=== PATIENT | female | born 1985 | race Caucasian/White ===

== ENCOUNTER 2017-11-25 21:07 | Emergency (ER) | payer OTHER ==
[~2017-11-25] VITALS: Ht 160 cm; Wt 86.2 kg
[~2017-11-25 21:07] MED LIST: AZITHROMYCIN 2250 MG PO; CHERACOL COUGH120 ML PO; CIPRO250 M1 PO; ERYTHROMYCIN250 MG PO; FLEXERIL PO; IBUPROFEN 800800 M1 PO; MEDROLDOSEPACK PO; NAPROSYN500 MG PO; PROVENTIL IN; SYNTHROID; SYNTHROID50 MCG PO; TESSALON200 MG PO; VICODIN 5-5001 EACH PO; ZOLOFT; ZOLOFT100 MG PO
[2017-11-25] MEDS ORDERED: VITAMIN D1000 UNI1 (21:19)
[2017-11-25] MEDS ORDERED: CYMBALTA30 MG PO (21:19)
[2017-11-25] MEDS ORDERED: GABAPENTIN 100100 MG PO (21:19)
[2017-11-25] MEDS ORDERED: LIPITOR10 MG (21:20)
[2017-11-25] MEDS ORDERED: LOPRESSOR25 (21:20)
[2017-11-25 23:28] VITALS: BP 124/83
== END 2017-11-25 23:28 | disposition home or self-care (01) ==
LOC: M.ERS 21:07
DX: S46.911A Strain of unspecified muscle, fascia and tendon at shoulder and upper arm level, right arm, initial encounter (principal); M54.5 Low back pain; Z88.5 Allergy status to narcotic agent; W10.8XXA Fall (on) (from) other stairs and steps, initial encounter; Y93.89 Activity, other specified; Y92.098 Other place in other non-institutional residence as the place of occurrence of the external cause; Y99.8 Other external cause status